=== PATIENT | male | born 1995 | race Caucasian/White ===

== ENCOUNTER 2021-03-05 12:41 | Emergency (ER) | payer OTHER ==
[~2021-03-05 12:41] MED LIST: AUGMENTIN 875-1 EACH PO; CYCLOBENZAPRINE10 MG PO; ETODOLAC500 MG PO; NORCO 5-325 TA1 EACH PO
[2021-03-05] MEDS ORDERED: CEPHALEXIN500 MG PO (17:08)
== END 2021-03-05 17:42 | disposition home or self-care (01) ==
LOC: FER 12:41
DX: S61.216A Laceration without foreign body of right little finger without damage to nail, initial encounter (principal); W45.8XXA Other foreign body or object entering through skin, initial encounter; Y92.89 Other specified places as the place of occurrence of the external cause; Y99.0 Civilian activity done for income or pay; Z23 Encounter for immunization
CPT/HCPCS: 90471; 90715

== ENCOUNTER 2021-03-16 12:03 | Emergency (ER) | payer SELFPAY ==
[~2021-03-16 12:03] MED LIST changes: +CEPHALEXIN500 MG PO
== END 2021-03-16 13:24 | disposition home or self-care (01) ==
LOC: FER 12:03
DX: S61.207D Unspecified open wound of left little finger without damage to nail, subsequent encounter (principal); X58.XXXD Exposure to other specified factors, subsequent encounter
CPT/HCPCS: 99281